=== PATIENT | female | born 1940 | race Caucasian/White ===

== ENCOUNTER 2016-12-23 13:10 | Emergency (ER) | payer MEDICARE ==
[~2016-12-23] VITALS: Ht 167.6 cm; Wt 79.1 kg
[~2016-12-23 13:10] MED LIST: AMLO10TA3 PO; ASPI81TA3 PO; ATEN25TA PO; GLIP10TA10 PO; LIP40 PO; LISI40TA PO; METF500T PO; NITR0.4T SL; PANT40TA3 PO; SERT100T PO
[2016-12-23 13:26] VITALS: BP 176/82; PULSE 63; RESP 12; O2SAT 96
--- NOTE | 2016-12-23 14:42 | ED.REPORT ---
HPI-Back Pain 40 and Over Date of Service Dec 23, 2016 ED Provider: Graciela Reyna History of Present Illness: need something for pain has not used anything for the pain in the back and down right leg for [address] Mcbride is primary care. lives with and dog. works in [employer]. living in a trailer. for 6 months 05/22. son lives 60 feet away in another trailer. Nursing Notes Stated Complaint: BACK PAIN Chief Complaint: Back Pain or Injury Nursing Notes Reviewed: Yes Allergies: Coded Allergies: iodine (Verified Allergy, Severe, 07/12/16) Uncoded Allergies: EXPECTORANT (Allergy, Unknown, 07/11/16) Scheduled Amlodipine (Amlodipine) 10 Mg Tablet 10 MG PO DAILY Aspirin Chew (Aspirin Chew) 81 Mg Chew 81 MG PO DAILY Atenolol (Atenolol) 25 Mg Tablet 25 MG PO DAILY Atorvastatin (Lipitor) 40 Mg Tablet 40 MG PO DAILY Glipizide (Glipizide) 10 Mg Tablet 10 MG PO BIDAC Lisinopril (Lisinopril) 40 Mg Tablet 40 MG PO DAILY Metformin (Glucophage) 500 Mg Tablet 1,000 MG PO BID Pantoprazole DR (Pantoprazole DR) 40 Mg Tablet.dr 40 MG PO DAILY Sertraline HCl (Zoloft) 100 Mg Tablet 100 MG PO DAILY Scheduled PRN Nitroglycerin SL (Nitrostat) 0.4 Mg Tab.subl 0.4 MG SL Q5MIN PRN PRN For Chest Pain General Time Seen by MD: 14:41 Chief Complaint Lumbar pain Hx Obtained From: Patient Sudden in Onset?: No Past Medical History Past Medical History HTN Fibromyalgia DM hyperlipidimia Tricuspid valve regurgitation Bronchitis Depression GERD IBS Osteoarthritis Reports: Coronary artery disease Past Surgical History Right achilles tendon repair TMJ surgery b/l Anthroscopy knee bladder sling surgery nasal septal surgery elbow surgery for lateral Reports: Hysterectomy Family History CAD Smoking History Never Smoker Social History Alcohol Use: Denies alcohol use Drug Use: Denies drug use Other Social History: Good social support, Occupation lives with , he drives 12/23/2016 Ambulatory Status Independent Review of Systems Basic Review of Systems Eyes: Vision NL, No discharge Psychiatric: Normal thought content Physical Exam Initial Vital Signs Vital Signs (First) Date Time Temp Pulse Resp B/P Pulse Ox O2 Delivery O2 Flow Rate FiO2 12/23/16 13:26 36.5 63 12 176/82 96 12/23/16 17:41 Room Air Initial VS: Reviewed, Vital signs normal Head / Eyes: Atraumatic, Normocephalic, PERRL Lymphatic: No lymphadenopathy Psychiatric: Mood/affect normal, Behavior normal, Normal thought content General/Constitutional: Awake, Alert, No acute distress, Well appearing, Well developed, Well hydrated, Well nourished, Cooperative, Not toxic appearing Respiratory / Chest: Atraumatic, Breath sounds NL, Breath sounds = bilat, No respiratory distress Cardiovascular: Heart rate NL, Regular rhythm, Heart sounds NL, No gallop Abdomen: Atraumatic, Soft, Non-tender Back: Atraumatic, Inspection NL, Full range of motion, Painless range of motion Neurologic: Oriented X3, Speech NL, No motor deficits, No sensory deficits, CN II - XII intact, Reflexes equal bilat Interpretation & Diagnostics Interpretation & Diagnostics: OFFICE SERVICES COORDINATOR calls . did not know that she called 911 to take her to the hospital. When he arrived, he states called him and he told her to call 911. Concern for possible dementia. not interested. Lab Results Interpretation Result Diagram: 12/23/16 1609 12/23/16 1609 Test 12/23/16 15:16 12/23/16 16:09 Urine Color Straw (YELLOW) Urine Appearance Hazy (CLEAR,HAZY) Urine pH 7.0 (5.0-8.0) Urine Specific [place] 1.020 (1.003-1.035) Urine Protein 100mg/dL (NEG,TRACE) Urine Glucose (UA) 250mg/dL (NEGATIVE) Urine Ketones Negativemg/dL (NEGATIVE) Urine Occult Blood Negative (NEGATIVE) Urine Nitrite Negative (NEGATIVE) Urine Bilirubin Negative (NEGATIVE) Urine Urobilinogen Normalmg/dL (NORMAL) Urine Leukocyte Esterase Negative (NEGATIVE) Urine RBC 0-2/hpf (0-2) Urine WBC 0-5/hpf (0-5) Urine Epithelial Cells Occasional/hpf (NONE-MOD) Urine Crystals None seen (NONE SEEN) Urine Bacteria Moderate/hpf (NONE-FEW) Urine Hyaline Casts None/lpf (NONE) Urine Granular Casts None seen (NONE SEEN) Urine Waxy Casts None seen (NONE SEEN) Urine Red Blood Cell Casts None seen (NONE SEEN) Urine White Blood Cell Casts None seen (NONE SEEN) Urine Mucus Present (None Seen) Urine Trichomonas None seen (NONE SEEN) Urine Yeast None (NONE SEEN) Urinalysis Comment None Urine Culture Reflexed Indicated White Blood Count 9.0th/mm3 (3.8-10.1) Red Blood Count 4.68mil/mm3 (3.90-5.20) Hemoglobin 14.2g/dL (12.0-15.6) Hematocrit 41.6% (35.0-46.0) Mean Corpuscular Volume 88.9fL (81-100) Mean Corpuscular Hemoglobin 30.3pg (27.0-35.0) Mean Corpuscular Hemoglobin Concent 34.1% (32.0-37.0) Red Cell Distribution Width 12.9% (12.3-15.4) Platelet Count 187bil/L (150-400) Neutrophils (%) (Auto) 74.3% (40-74) Lymphocytes (%) (Auto) 19.7% (14-46) Monocytes (%) (Auto) 4.0% (4-12) Eosinophils (%) (Auto) 1.7% (0-5) Basophils (%) (Auto) 0.2% (0-3) Sodium Level 138mEq/L (134-144) Potassium Level 3.8mEq/L (3.5-5.2) Chloride Level 98mEq/L (97-108) Carbon Dioxide Level 26mmol/L (18-29) Blood Urea Nitrogen 15mg/dL (8-27) Creatinine 0.65mg/dL (0.57-1.00) Estimat Glomerular Filtration Rate 127mL/min (>59) Glucose Level 236mg/dL (60-99) Calcium Level 9.3mg/dL (8.5-10.1) Total Bilirubin 0.5mg/dL (0.0-1.2) Aspartate Amino Transf (AST/SGOT) 20U/L (0-50) Alanine Aminotransferase (ALT/SGPT) 25U/L (0-32) Alkaline Phosphatase 97U/L (25-165) Total Protein 6.8g/dL (6.4-8.4) Albumin 4.3g/dL (3.4-5.0) Re-Eval/Medical Decision Med Decision/Clinical Course 75 year old female presents for evualation of back pain of 2 weeks duration. Patient ambulating eithout difficulty. labs are normal. urine shows possible infection, x-ray is negative. patient reporting good pain relief with toradol. No sign of dissection or fracture Discharge & Departure Impression: Primary Impression: Low back pain Chronicity: chronic Back pain laterality: right Sciatica presence: with sciatica Sciatica laterality: sciatica of right side Qualified Code: M54.41 - Lumbago with sciatica, right side Additional Impression: Urinary tract infection Disposition: Home Patient Instructions: Sciatica (ED), Urinary Tract Infection in Women (ED) Additional Instructions: The labs are normal. The urine show a bladder infection. You have had the first dose of antibiotics in the ER. Continue with bactrim in the am and pm for 3 days. Please follow up with Dr. Mcbride in 2 to 3 weeks. Use ibuprofen 400 mg up to 2 times a day for back pain. Push fluids. Referrals: hCivo Mcbride MD (PCP) EDSupervising Provider for APC: Leonard Hassan MD copies to: Chivo Mcbride MD, Sue ARNP Dec 23, 2016 14:42
[2016-12-23 15:23] LABS: APPEARANCE,URINE HAZY (CLEAR,HAZY); COLOR,URINE STRAW (YELLOW); OCCULT BLOOD,URINE NEGATIVE (NEGATIVE); UROBILINOGEN,URINE NORMAL (NORMAL)
[2016-12-23] MEDS ORDERED: Trimethoprim-Sulfa 160 mg-800 mg Tablet PO ONE (15:35)
--- NOTE | 2016-12-23 15:56 | DRSVH ---
PROCEDURE: X-RAY CHEST, TWO VIEWS ([id number]) INDICATIONS: pain TECHNIQUE: 2 views of the chest were acquired. COMPARISON: [facility], CR, XR CHEST 2VW, 07/13/2016, 14:58. FINDINGS: Surgical changes and devices: None. Lungs and pleura: No pleural effusions or pneumothorax. Lungs are clear. Mediastinum: Mediastinal contours are normal. Heart size is normal. Bones and chest wall: No suspicious bony abnormalities. Soft tissues appear unremarkable. IMPRESSION: No acute process. Dictated by: Elias Encarnacion M.D. on 12/23/2016 at 15:55 Approved by: Elias Encarnacion M.D. on 12/23/2016 at 15:55
--- NOTE | 2016-12-23 15:56 | DRSVH ---
PROCEDURE: X-RAY PELVIS W/LAT HIP (RT) ([id number]) INDICATIONS: pain TECHNIQUE: AP pelvis with lateral view(s) of the right hip(s). COMPARISON: None. FINDINGS: Bones: No fractures or dislocations. Pelvic ring appears intact. No suspicious bony lesions. Mode rate bilateral hip joint space narrowing and periarticular osteophyte formation are present. Soft tissues: The visualized bowel gas pattern is normal. No suspicious soft tissue calcifications. IMPRESSION: 1. Bilateral hip osteoarthritis. 2. No acute fracture. No osseous lesion. If symptoms and/or clinical suspicion for pathology persist, further assessment with repeat, or advanced imaging (e.g., CT, MRI, or bone scan) may be helpful for further assessment. Dictated by: Elias Encarnacion M.D. on 12/23/2016 at 15:54 Approved by: Elias Encarnacion M.D. on 12/23/2016 at 15:55
[2016-12-23 16:19] LABS: BASOPHILS % (AUTO) 0.2 % (0-3); EOSINOPHILS % (AUTO) 1.7 % (0-5); Mean Corpuscular Hemoglobin 30.3 pg (27.0-35.0); Mean Corpuscular Volume 88.9 fL (81-100); NEUTROPHILS % (AUTO) 74.3 % (40-74); Platelet Count 187 bil/L (150-400)
[2016-12-23 17:41] VITALS: BP 159/87; PULSE 77; RESP 12; O2SAT 94
== END 2016-12-23 18:04 | disposition home or self-care (01) ==
LOC: SED 13:10
DX: M54.41 Lumbago with sciatica, right side (principal); N39.0 Urinary tract infection, site not specified; I11.9 Hypertensive heart disease without heart failure; E11.59 Type 2 diabetes mellitus with other circulatory complications; I25.10 Atherosclerotic heart disease of native coronary artery without angina pectoris; M79.7 Fibromyalgia; K21.9 Gastro-esophageal reflux disease without esophagitis; Z98.890 Other specified postprocedural states; Z79.82 Long term (current) use of aspirin; Z79.84 Long term (current) use of oral hypoglycemic drugs; Z88.8 Allergy status to other drugs, medicaments and biological substances